=== PATIENT | female | born 1970 | race Native Hawaiian/Other Pacific Islander ===

== ENCOUNTER 2018-02-17 08:31 | Day surgery (SDC) | payer OTHER ==
[2018-02-17] MEDS ORDERED: Propofol 10 mg/ml Inj (20 ML) ONE (09:30)
[2018-02-17 10:25] VITALS: O2SAT 100
--- NOTE | 2018-02-17 11:07 | PCM.SURG1 ---
Surgeon's Initial Post Op Note - Surgeon's Notes Surgeon: Katherine Ramos MD Plastic Sheeting Cutter: none Type of Anesthesia: General LMA Pre-Operative Diagnosis: Abnormla uterine bleeding, enodmetrial polyp Operative Findings: 10 week size uterus, bilaterla ostial visualized, submcuosal myoma x3 near right tubal ostial left tubal ostia near interal os, myosure device used Post-Operative Diagnosis: abnormal uterien bleeding, submcuosal myomas Operation Performed: Hystersocpic myoemctomy, fractional dilation and currettage Specimen/Specimens Removed: endocervical curretting, endometiral curretting, submcuosal myoma Estimated Blood Loss: EBL {In ML}: 5 Blood Products Given: N/A Drains Used: No Drains Post-Op Condition: Good Date of Surgery/Procedure: 02/17/18 Time of Surgery/Procedure: 09:30
[2018-02-17 12:02] VITALS: BP 135/72; PULSE 72; RESP 16; TEMP 97.5
--- NOTE | 2018-02-17 23:53 | OP ---
PROCEDURE DATE: 02/17/2018 SURGEON: Katherine Ramos MD SENIOR MOBILE DEVELOPER: None. TYPE OF ANESTHESIA: General LMA. PREOPERATIVE DIAGNOSES: Abnormal uterine bleeding, endometrial polyp. POSTOPERATIVE DIAGNOSES: Abnormal uterine bleeding, endometrial polyp, submucosal myoma. OPERATIVE FINDINGS: A 10 weeks' size uterus, bilateral ostia visualized, submucosal myoma x3, the right tubal ostia and left tubal ostia MyoSure device and internal os MyoSure device used. OPERATION PERFORMED: Hysteroscopic myomectomy, fractional dilatation and curettage. SPECIMEN REMOVED: Endocervical curettings, endometrial curettings, submucosal myoma. ESTIMATED BLOOD LOSS: 5 mL. BLOOD PRODUCTS: None. COMPLICATIONS: None. DESCRIPTION OF PROCEDURE: The patient was taken to the operating room where she was given general anesthesia. Once it was found to be adequate, she was placed on the operating table in a dorsal supine position with the legs supported using stirrups. The patient was then prepped and draped in the usual sterile fashion. A time-out confirmed correct patient and correct procedure. Bimanual exam was performed. A Murphy retractor was placed in the anterior and posterior fornix of the vagina. Cervix was adequately visualized. A single-tooth tenaculum was placed on the anterior lip of the cervix. Endocervical curettings were obtained with Kevorkian curette and sent to pathology on [facility]. The uterus was then sounded to 8 cm. Following this, the cervix was sequentially dilated to allow for introduction of the hysteroscope under direct visualization and using normal saline as distention media. There were multiple myomas noted within the cavity. MyoSure device was then carefully inserted, and the myomas were then carefully resected. The specimen was sent to Pathology. The MyoSure device was then removed. A gentle curettage was done. The specimen was sent to pathology labeled as endometrial curettings. All instruments were removed. There was good hemostasis noted at the tenaculum and puncture site. At the end of the procedure, all needle, sponge, and instrument counts were noted and correct x2. The patient tolerated the procedure well and transferred to the recovery room in stable condition. Katherine Ramos MD
== END 2018-02-17 12:14 | disposition home or self-care (01) ==
LOC: C.SDS 08:31
PROVIDERS: ATTEND Obstetrics & Gynecology
DX: N93.9 Abnormal uterine and vaginal bleeding, unspecified (principal); N84.0 Polyp of corpus uteri; D25.0 Submucous leiomyoma of uterus
CPT/HCPCS: 58561; 88305; J2405; J2704; J3010

== ENCOUNTER 2018-04-16 06:42 | Day surgery (SDC) | payer OTHER ==
[2018-03-07 10:24] VITALS: BMI 21.2
[2018-04-16] MEDS ORDERED: Propofol 10 mg/ml Inj (20 ML) ONE (07:56)
[2018-04-16] MEDS ORDERED: Midazolam 2 MG/2 ML VIAL ONE (07:56)
[2018-04-16] MEDS ORDERED: HYDROmorphone 0.5 mg/0.5 ml ISec IVP PRN (08:25)
--- NOTE | 2018-04-16 08:51 | PCM.SURG1 ---
Surgeon's Initial Post Op Note - Surgeon's Notes Surgeon: Katherine Ramos MD Bridge Welder: none Type of Anesthesia: General LMA Pre-Operative Diagnosis: abnormal uterine bleeding, submucosal myoma Operative Findings: 10 week zie utuers, submcuos myoma ~2cm near right ostia on atenrir uterine wall, bialtelr ostia visulzed, good hemostasis Post-Operative Diagnosis: same as above Operation Performed: Hysteroscopc myomecotmy, dilatoin and currettage Specimen/Specimens Removed: endometrial currettings, submucosal myoma Estimated Blood Loss: EBL {In ML}: 5 Blood Products Given: N/A Drains Used: No Drains Post-Op Condition: Good Date of Surgery/Procedure: 04/16/18 Time of Surgery/Procedure: 08:15
[2018-04-16 09:10] VITALS: O2SAT 100
[2018-04-16 11:51] VITALS: BP 126/70; PULSE 86; RESP 18; TEMP 98
--- NOTE | 2018-04-16 19:47 | OP ---
PROCEDURE DATE: 04/16/2018 SURGEON: Katherine Ramos MD VASCULAR TECH: None. TYPE OF ANESTHESIA: General LMA. PREOPERATIVE DIAGNOSIS: Abnormal uterine bleeding, submucosal myoma. POSTOPERATIVE DIAGNOSIS: Abnormal uterine bleeding, submucosal myoma. OPERATIVE FINDINGS: A 10-week size uterus, submucosal myoma 2 cm in the right ostia and anterior uterine wall, bilateral ostia visualized. Good hemostasis. OPERATION PERFORMED: Hysteroscopic myomectomy, dilation and curettage. SPECIMEN REMOVED: Endometrial curettings and submucosal myoma. ESTIMATED BLOOD LOSS: 5 mL. BLOOD PRODUCTS: None. COMPLICATIONS: None. DESCRIPTION OF PROCEDURE: The patient was taken to the operating room where she was given general anesthesia. Once it was found to be adequate, she was placed on the operating table in dorsal supine position with legs supported using stirrups. The patient was prepped and draped in the usual sterile fashion. Time-out confirmed correct procedure and correct patient. Bimanual exam was performed with the above-mentioned findings. A Murphy retractor was placed in anterior posterior fornix of the vagina. Cervix was adequately visualized. A single-tooth tenaculum was placed in the anterior lip of the cervix. The uterus was then sounded. Cervix was sequentially dilated to allow for introduction of the hysteroscope under direct visualization using normal saline as the distention media. Bilateral ostia visualized. There was submucosal mass noted near the right cornua. The MyoSure device was inserted. The mass was then carefully resected. There was good hemostasis noted. The MyoSure device was then removed. Gentle curettage was done. The hysteroscope was then reentered. There was good hemostasis noted. All instruments were removed. There was good hemostasis at the tenaculum puncture site. At the end of the procedure, all needle, sponge, and instrument counts were noted and correct x2. The patient tolerated the procedure well and was transferred to the recovery room in stable condition. Katherine Ramos MD
== END 2018-04-16 11:53 | disposition home or self-care (01) ==
LOC: C.SDS 06:42
PROVIDERS: ATTEND Obstetrics & Gynecology
DX: D25.0 Submucous leiomyoma of uterus (principal); N93.9 Abnormal uterine and vaginal bleeding, unspecified; N84.0 Polyp of corpus uteri
CPT/HCPCS: 36415; 58561; 86850; 86900; 88305; J2250; J2704; J3010

== ENCOUNTER 2018-10-14 09:20 | Outpatient (CLI) | payer OTHER | END 2018-10-14 09:21 | disposition home or self-care (01) | LOC: C.RADH 09:20 | DX: M25.561 Pain in right knee (principal); M25.512 Pain in left shoulder ==